=== PATIENT | male | born 1970 | race Caucasian/White ===

== ENCOUNTER 2020-02-21 12:23 | Emergency (ER) | payer SELFPAY ==
[2020-02-21 12:28] VITALS: BP 147/91; PULSE 85; TEMP 98.7; BMI 28.8
[2020-02-21] MEDS ORDERED: DALBAVANCIN HCL 1,500 MG in DEXTROSE 5%-WATER - 500 ML IVPB ONE (13:03)
[2020-02-21] MEDS ORDERED: DALBAVANCIN HCL 500 MG VIAL (RESTRICTED TO ID ONLY) IVPB ONE (13:43)
[2020-02-21 14:54] LABS: BASO % 0.4 % (0-2.0); EOS % 0.1 % (0-4.5); HEMATOCRIT 44.3 % (35.4-49); HEMOGLOBIN 14.7 GM/dL (11.7-16.9); LYMPH % 11.9 % (8-40); MCH 30.8 pg (25.7-33.7); MCHC 33.2 g/dl (32.0-35.9); MEAN CELL VOLUME 92.8 fl (80-96); MEAN PLT VOLUME 8.6 fl (7.5-11.1); MONO % 6.7 % (3.8-10.2); NEUT % 80.9 % (42.8-82.8); PLATELET COUNT 217 K/MM3 (134-434); RBC 4.78 M/mm3 (4.00-5.60); RDW 13.5 % (11.9-15.9); WHITE BLOOD COUNT 10.9 K/mm3 (4.0-10.0)
[2020-02-21 15:08] LABS: POTASSIUM 4.8 mmol/L (3.5-5.1)
[2020-02-21 15:10] LABS: CALCIUM 8.9 mg/dL (8.5-10.1)
[2020-02-21 15:15] LABS: BILIRUBIN,TOTAL 0.5 mg/dL (0.2-1); TOT PROT 7.6 g/dl (6.4-8.2)
== END 2020-02-21 14:30 | disposition home or self-care (01) ==
LOC: JER 12:23
DX: S61.451A Open bite of right hand, initial encounter (principal); L03.113 Cellulitis of right upper limb
CPT/HCPCS: 36415; 80053; 85025; 99284-25; J0875

== ENCOUNTER 2020-02-23 10:11 | Emergency (ER) | payer SELFPAY ==
[2020-02-23 10:31] VITALS: BP 123/87; PULSE 78; TEMP 98.3; BMI 28.8
== END 2020-02-23 11:07 | disposition home or self-care (01) ==
LOC: JERFT 10:11 → JER 10:11 → JERFT 11:07
DX: L03.113 Cellulitis of right upper limb (principal)
CPT/HCPCS: 99281-25